=== PATIENT | female | born 1945 | race Caucasian/White ===

== ENCOUNTER → 2021-09-20 09:10 | Outpatient (BNVA) | payer MEDICARE, SELFPAY | PROVIDERS: PCP Family Medicine; Visit Provider Nurse Practitioner Family | DX: G47.33 Obstructive sleep apnea (adult) (pediatric) (principal); R42 Dizziness and giddiness; R09.89 Other specified symptoms and signs involving the circulatory and respiratory systems; G43.909 Migraine, unspecified, not intractable, without status migrainosus | CPT/HCPCS: 99212 ==

== ENCOUNTER → 2022-05-17 14:56 | Outpatient (BNVA) | payer MEDICARE, SELFPAY | PROVIDERS: PCP Family Medicine; Visit Provider Nurse Practitioner Family | DX: G47.33 Obstructive sleep apnea (adult) (pediatric) (principal); R90.89 Other abnormal findings on diagnostic imaging of central nervous system; G43.909 Migraine, unspecified, not intractable, without status migrainosus | CPT/HCPCS: 99212 ==

== ENCOUNTER 2023-09-20 09:23 | Outpatient (AMB) | payer MEDICARE, SELFPAY ==
--- NOTE | 2023-09-20 09:35 | MHC.OFFVIS ---
Intake Vital Signs 09/20/23 09:44 Height 5 ft 4 in Weight 247 lb BMI 42.4 BP 112/60 Blood Pressure Location Lt brachial Position Sitting Pulse 66 Pulse Source Pulse Oximeter Pulse Oximetry (%) 96 Oxygen Delivery Method Room Air Intake Visit Reasons: 1year follow up-LVM Intake Note: Patient presents for 1 year F/U. Allergies acetaminophen [From Percocet] Allergy (Intermediate, Verified 09/20/23 09:41) hives egg Allergy (Intermediate, Verified 09/20/23 09:41) diarreah latex Allergy (Intermediate, Verified 09/20/23 09:41) numness meperidine [From Demerol] Allergy (Intermediate, Verified 09/20/23 09:41) vomiting oxycodone [From Percocet] Allergy (Intermediate, Verified 09/20/23 09:41) hives Penicillins Allergy (Intermediate, Verified 09/20/23 09:41) hives valsartan [From Diovan] Allergy (Intermediate, Verified 09/20/23 09:41) Vomiting ice Allergy (Severe, Uncoded 05/17/22 15:29) Hives gluten Allergy (Uncoded 05/17/22 15:29) pain and diarreh Medication List - Last Reconciled 09/20/23 by TRAVIS Steele amitriptyline 10 mg PO BEDTIME aspirin (Adult Low Dose Aspirin) 81 mg PO DAILY atorvastatin 20 mg PO DAILY escitalopram oxalate 20 mg PO DAILY levothyroxine 112 mcg PO DAILY sulfamethoxazole-trimethoprim 800-160 mg 1 tab PO DAILY HPI HPI Comments History of Present Illness Details 78-yr-old female presents for follow-up visit. Pt endorses the following interval medical history changes: Pt reports she sustained a fall in Mar 2023, and underwent a f/u left hip ORIF. Pt states the surgeon felt that the fracture caused the fall. She has been advised to start Fosamax, wants to check with GI as she wants to make sure this will not affect her liver. She had in-pt rehab, home and then out-pt PT. She has some difficulty using her CPAP during this time. Most recently, she had a head cold for a couple of weeks so she could not use it. When used, her residual AHI was 5.5/hr (? elevated d/t residual sinus/nasal congestion). States her memory is good. Occasionally mild headache not a/w photo/phonophobia or N/V- using Tylenol prn. BP is well-controlled. Compliant w/ ASA and statin. She is trying to start quilting and sewing again- notes that this is a more physically active activity than say knitting. Walking laps around the house, has been able to take a few walks outside when the weather was nicer last week. She is falling a [employer] diet- doing ok. PFSH Medical History (Updated 05/17/22 @ 15:30 by Kenia Whitney [facility]) FH: total knee replacement Osteoarthritis Hypothyroidism HLD (hyperlipidemia) Depression Lymph node abscess FH: cholecystectomy Ganglion cyst Surgical History History of hip surgery Hx of LASIK H/O: hysterectomy H/O eye surgery H/O knee surgery Social History (Updated 09/20/23 @ 09:44 by Viola Oliveros CMA) Household Members: Spouse Housing: House Alcohol intake: never Patient Tobacco Use Status: Never used Tobacco Review of Systems Const All systems reviewed & are unremarkable except as noted in HPI and below Physical Exam Vital Signs: Last Vital Signs Pulse 66 09/20/23 09:44 BP 112/60 09/20/23 09:44 Pulse Ox 96 09/20/23 09:44 Oxygen Delivery Method Room Air 09/20/23 09:44 BMI result Body Mass Index 42.4 Const General: no acute distress Orientation/consciousness: patient oriented x3 HEENT Head: Yes normocephalic Resp Effort & Inspection: normal respiratory effort and able to speak in complete sentences Auscultation: clear to auscultation bilaterally Cardio Rate: regular rate Rhythm: regular rhythm Neuro General: patient oriented x3 Psych Mental Status: mental status grossly normal Speech and movement: Clear speech present Attitude: cooperative Results Reviewed Results Reviewed: PAP compliance report- see HPI Assessment & Plan Assessment & Plan (1) ANA ROSA (obstructive sleep apnea): Comment: AHI 27, RI 38.5, median SpO2 92.2% with O2 oni of 84% (12 min w/ O2 < 88%), periodic limb movemnts 117.2/hr with arousal index of 1.2/hr.. Code(s): G47.33 - Obstructive sleep apnea (adult) (pediatric) (2) Abnormal brain MRI: Comment: Brain MRI (11-23-17) revealed multiple nonspecific white matter lesions, suggestive of small vessel ischemic changes and areas of old infarction Code(s): R90.89 - Other abnormal findings on diagnostic imaging of central nervous system (3) Migraine: Code(s): G43.909 - Migraine, unspecified, not intractable, without status migrainosus Plan For h/o lacunar infarcts/WM changes: Continue Statin and ASA. Continue increasing physical activity- advised that improving her bone density is an important component of being bale to maintain regular physical activity. For h/o vertigo: PT exercises prn. Change positions slowly, increase fluids. For migraines: Now using Tylenol prn. If worsens, may resume Fioricet prn. ? Continue APAP 7-15? cmH2O nightly > 4 hours, as pt is having good clinical effect. May hold for URI s/s. May use steam and Vicks prn nasal congestion. Note- pt does not like nasal sprays. Clean machine and supplies daily. Change PAP supplies routinely. Pt to call us/respiratory home care company with any concerns. ? f/u in 1 yr or sooner prn/new worsening Coding Level of Care Code Est Pt Level 3 (67922) Diagnoses ANA ROSA (obstructive sleep apnea) G47.33 Abnormal brain MRI R90.89 Migraine G43.909
[2023-09-20 09:44] VITALS: BP 112/60; PULSE 66; O2SAT 96; BMI 42.4
== END 2023-09-20 10:24 | disposition home or self-care (01) ==
PROVIDERS: PCP Family Medicine; Visit Provider Nurse Practitioner Family
DX: G47.33 Obstructive sleep apnea (adult) (pediatric) (principal); R90.89 Other abnormal findings on diagnostic imaging of central nervous system; G43.909 Migraine, unspecified, not intractable, without status migrainosus
CPT/HCPCS: 99213

== ENCOUNTER → 2023-09-20 09:23 | Outpatient (BNVA) | payer MEDICARE, SELFPAY | PROVIDERS: Visit Provider Nurse Practitioner Family | DX: G43.909 Migraine, unspecified, not intractable, without status migrainosus (principal); G47.33 Obstructive sleep apnea (adult) (pediatric); R90.89 Other abnormal findings on diagnostic imaging of central nervous system | CPT/HCPCS: 99212 ==

== ENCOUNTER 2024-02-24 08:01 | Outpatient (REF) | payer MEDICARE, SELFPAY ==
--- NOTE | ~2024-02-24 | MR_ITS ---
EXAMINATION: MR BRAIN WITHOUT CONTRAST CLINICAL INFORMATION: Cerebral microvascular disease. COMPARISON: None available. TECHNIQUE: MRI of the brain was obtained using routine sequences without contrast. FINDINGS: No focal restricted diffusion is demonstrated to suggest acute or subacute cerebral ischemia. No evidence of acute or chronic hemorrhagic products on heme-sensitive imaging. Chronic lacunar infarcts of the left caudate head, bilateral lentiform nuclei, and left thalamus. Scattered and partially confluent periventricular, deep white matter, and brainstem T2 FLAIR hyperintensities consistent with moderate underlying microangiopathy. The ventricles are normal in morphology and size. No abnormal mass effect. No midline shift. Normal appearance of the pituitary gland. Normal positioning of the cerebellar tonsils. Normal arterial and venous vascular flow voids are present. Normal, homogeneous marrow signal. Mild mucosal thickening of the paranasal sinuses. No signal abnormalities within the mastoids. MR/MR head/brain wo con IMPRESSION: 1. No acute intracranial abnormalities. 2. Moderate underlying microangiopathy. Chronic lacunar infarcts of the deep nuclei. Electronically signed by: Karan Mercedes DO 03/20/2024 10:47 PM EDT
== END 2024-02-24 08:02 | disposition home or self-care (01) ==
LOC: HO.MRI 08:01
PROVIDERS: PCP Family Medicine; Visit Provider Registered Nurse
DX: I67.9 Cerebrovascular disease, unspecified (principal)
CPT/HCPCS: 70551